=== PATIENT | female | born 1950 | race Caucasian/White ===

== ENCOUNTER 2016-10-30 11:05 | Day surgery (SDC) | payer OTHER ==
[~2016-10-30] VITALS: Ht 154.9 cm; Wt 94.4 kg
--- NOTE | 2016-10-30 07:13 | PCM.HPANE ---
Patient Data Surgeon Admitting Provider: Attending Provider:Bertha Benz MD Primary Care Physician:Daja Villegas Other Provider:Manasa Abebe Anesthesia Reason for Visit Fam Hx Of Colon Cancer Ht/WT & BMI Body Mass Index Allergies Coded Allergies: Penicillins (Verified Allergy, Severe, 10/29/16) acetaminophen (Verified Allergy, Severe, Nausea,Vomiting, 10/29/16) aspirin (Verified Allergy, Severe, 10/29/16) PT STATES NO ALLERGY erythromycin base (Verified Allergy, Severe, 10/29/16) oxycodone (Verified Allergy, Severe, Nausea,Vomiting, 10/29/16) Past Anesthesia History Anesthesia History: Denies:: Anesthesia Reactions Diabetes History Hx Diabetes?: No MRSA MRSA: No Medications Reported Medications Aspirin 81 Mg Jzzkfs58 Mg PO DAILY Ref 0 10/30/16 Beclomethasone Dipropionate (Qvar)8.7 Gm Aer.w.adap2 Puff INHALATION BID #8.7 GM 10/30/16 Losartan Potassium 25 Mg Vcpcgu27 Mg PO BID 10/30/16 Hydrochlorothiazide 25 Mg Okbyuw27 Mg PO DAILY 30 Days Ref 0 10/29/16 Albuterol Sulfate (Proair Respiclick)90 Mcg Aer.pow.ba90 Mcg IH Q4 10/29/16 Acetaminophen/Codeine 300-30mg 1 Each Tablet1 Tablet PO QID PRN Pain Ref 0 10/29/16 Ketotifen Fumarate (Alaway)10 Ml Drops1 Drop BOTH_EYES daily/prn 05/24/15 Discontinued Reported Medications Acetaminophen/Diphenhydramine (Tylenol Pm Ex-Strength Caplet)500 Mg-25 Mg Tablet1 Each PO HS 10/29/16 Methocarbamol 750 Mg Huawlu738 Mg PO QID PRN For Spasm Ref 0 10/29/16 Cyclobenzaprine 10 Mg Rxpztq71 Mg PO TID PRN Spasm 10/29/16 Dabigatran Etexilate Mesylate (Pradaxa)150 Mg Fvhweqv563 Mg PO BID 30 Days 05/25/15 Temazepam 15 Mg Iznukpy99-82 Mg PO HS PRN For Insomnia 30 Days Ref 0 01/25/15 Metoprolol Tartrate 25 Mg Tkqhkk63 Mg PO BID 30 Days Ref 0 01/25/15 Losartan Potassium 25 Mg Ytxtyj90 Mg PO BID 01/25/15 Amiodarone 200 Mg Twldhw628 Mg PO DAILY Ref 0 01/25/15 Albuterol Sulfate (Proventil HFA Inhaler)6.7 Gm Hfa.aer.ad1 Puff INH Q4 PRN For Wheezing #1 INHALER Ref 0 01/25/[address] 40 Mg Bploft83 Mg PO DAILYAC #30 TABLET Ref 0 Prov:Edmundo Nate Bernardo CHAUNCEY 05/26/15 History History of ENT Problems?: No HEENT History: Positive for:: Sinus Problem (2nd to allergies) Denies:: Abnormal Airway Cataracts Difficult Intubation Dysphagia Glaucoma Hearing Problem TMJ Denture Type: None Teeth Condition: Within Normal Limits Hx of Heart Problems?: Yes Cardiovascular History: Positive for:: Chest Pain (TIGHTNESS WITH A-FIB) Hypertension Irregular Heartbeat (paroxysmal atrial fibrillation) Denies:: Cardiac Surgery Congestive Heart Failure Edema Heart Murmur Pacemaker Thrombophlebitis Hx of Respiratory Problem?: Yes Respiratory History: Positive for:: Asthma Dyspnea (WITH EPISODES) Hx Neurologic Problems?: No Hx of GI Problems?: Yes Hx of Problems?: No Female Hx: Denies:: Currently Hx Musculoskeletal Problems?: No Hx of Psycho/Social Problems?: No Hx Surgeries?: Yes (hysterectomy,tubal ligation,lypoma removal) Hx Any Other Health Problems?: Yes Other History: Positive for:: Hospitalization Denies:: Cancer Thyroid Disease History Blood Transfusions: Denies:: Blood Transfuse Reaction Blood Transfusions Hx Diabetes: No Hx Alcohol Use: NoHx Substance Use: No Smoking Status: Former Smoker Have You Smoked inLast 12 mo: No Stop/Bang Risk Assessment Category Category 1A: Patient has history of documented sleep apnea, and HAS NOT received any narcotic, sedative or anesthesia administration during this stay. Category 1B: Patient has history of documented sleep apnea, and HAS received any narcotic , sedative or anesthesia administration during this stay Category 2: Patient has SUSPECTED Obstructive Sleep Apnea, and HAS received any narcotic , sedative or anesthesia administration during this stay. Category 3: Patient has SUSPECTED Obstructive Sleep Apnea and HAS NOT received narcotic, sedative or anesthesia administration during this stay. Category 4: Outpatient in Procedural Areas with known sleep apnea or who screen positive for High Risk via the STOP/BANG questionnaire. Exam Exam General Appearance: Alert, Oriented X3, Cooperative, No Acute Distress HEENT/AIRWAY: MP 2 Lungs: Clear to Auscultation, Normal Air Movement Heart: Exam Unremarkable, Regular Rate/Rhythm, No Murmurs/Rubs/Gallops Plan Impression Patient chart reviewed, patient interviewed and anesthestic plan with risks, benefits, and alternatives discussed, and informed consent obtained. NPO per Anesth. Guidelines: Yes ASA Physical Status: ASA2 Mod Systemic Disease Anesthetic Plan: MAC Bene/Risks/Altern/Consents: Yes HP Complete Prior to Induction: Yes (another anesthesiologist performed the anesthetic) Janak Leyva MD Oct 30, 2016 07:13
[~2016-10-30 11:05] MED LIST: ACET-2605 PO; ACET1TAB42 PO; ALBU90AE IH; CYCL10TA9 PO; HYDR25TA4 PO; KETO10DR4 BOTH_EYES; Lactated Ringer's 1,000 ML IV ONE; Lactated Ringer's 1,000 ML IV SCH; METH750T3 PO; MetoCLOpramide 5 mg/mL 2 mL Inj IVPUSH PRN; Ondansetron 2 mg/mL 2 mL Inj IVPUSH PRN
[2016-10-30] MEDS ORDERED: Propofol 10,000 mCg/mL 20 mL Inj ONE (11:06)
[2016-10-30 11:37] VITALS: BP 146/74; PULSE 84; RESP 18; O2SAT 95
[2016-10-30] MEDS ORDERED: ASPI-973 PO (11:42)
[2016-10-30] MEDS ORDERED: LOSA25TA21 PO (11:42)
[2016-10-30] MEDS ORDERED: BECL8.7A6 INHALATION (11:42)
[2016-10-30] MEDS ORDERED: Lactated Ringer's 1,000 ML IV SCH (13:46)
--- NOTE | 2016-10-30 13:49 | PCM.HPANE ---
Patient Data Date of Service: Oct 30, 2016 Surgeon Admitting Provider: Attending Provider:Vishal Felder MD Primary Care Physician:Daja Villegas Other Provider:Manasa Abebe Anesthesia Reason for Visit Fam Hx Of Colon Cancer Ht/WT & BMI Height (Feet): 5 Height (Inches): 1 Weight (Kilograms): 94.38 Body Mass Index 39.00 Allergies Coded Allergies: Penicillins (Verified Allergy, Severe, 10/29/16) acetaminophen (Verified Allergy, Severe, Nausea,Vomiting, 10/29/16) aspirin (Verified Allergy, Severe, 10/29/16) PT STATES NO ALLERGY erythromycin base (Verified Allergy, Severe, 10/29/16) oxycodone (Verified Allergy, Severe, Nausea,Vomiting, 10/29/16) Past Anesthesia History Anesthesia History: Denies:: Abnormal Airway, Anesthesia Reactions, Difficult Intubation, Fam Anesthesia Reaction, Fam Malignant Hypertherm, Malignant Hyperthermia Diabetes History Hx Diabetes?: No MRSA MRSA: No Medications Blood Thinner: Aspirin Last Dose Blood Thinner: Oct 29, 2016 Hypertension Medication: Yes Home Meds Incl Beta Kwesi: No Reported Medications Aspirin 81 Mg Tgqqap05 Mg PO DAILY Ref 0 10/30/16 Beclomethasone Dipropionate (Qvar)8.7 Gm Aer.w.adap2 Puff INHALATION BID #8.7 GM 10/30/16 Losartan Potassium 25 Mg Njrljd16 Mg PO BID 10/30/16 Hydrochlorothiazide 25 Mg Ezqquu56 Mg PO DAILY 30 Days Ref 0 10/29/16 Albuterol Sulfate (Proair Respiclick)90 Mcg Aer.pow.ba90 Mcg IH Q4 10/29/16 Acetaminophen/Codeine 300-30mg 1 Each Tablet1 Tablet PO QID PRN Pain Ref 0 10/29/16 Ketotifen Fumarate (Alaway)10 Ml Drops1 Drop BOTH_EYES daily/prn 05/24/15 Discontinued Reported Medications Acetaminophen/Diphenhydramine (Tylenol Pm Ex-Strength Caplet)500 Mg-25 Mg Tablet1 Each PO HS 10/29/16 Methocarbamol 750 Mg Mmcjlh477 Mg PO QID PRN For Spasm Ref 0 10/29/16 Cyclobenzaprine 10 Mg Ithvnv45 Mg PO TID PRN Spasm 10/29/16 Dabigatran Etexilate Mesylate (Pradaxa)150 Mg Ezxzvqm906 Mg PO BID 30 Days 05/25/15 Temazepam 15 Mg Ihqqjoe73-03 Mg PO HS PRN For Insomnia 30 Days Ref 0 01/25/15 Metoprolol Tartrate 25 Mg Tdybqm22 Mg PO BID 30 Days Ref 0 01/25/15 Losartan Potassium 25 Mg Hlednd99 Mg PO BID 01/25/15 Amiodarone 200 Mg Oluifr245 Mg PO DAILY Ref 0 01/25/15 Albuterol Sulfate (Proventil HFA Inhaler)6.7 Gm Hfa.aer.ad1 Puff INH Q4 PRN For Wheezing #1 INHALER Ref 0 01/25/[address] 40 Mg Tjumcc62 Mg PO DAILYAC #30 TABLET Ref 0 Prov:Nate Wyatt PA-C 05/26/15 History History of ENT Problems?: No HEENT History: Positive for:: Dysphagia (INTERMITTENT) Hearing Problem (MILD [place] PASS) Sinus Problem (2nd to allergies) Denies:: Abnormal Airway Difficult Intubation Denture Type: None Teeth Condition: Tooth Decay Hx of Heart Problems?: Yes Cardiovascular History: Positive for:: Atrial Fibrillation Irregular Heartbeat (paroxysmal atrial fibrillation) Denies:: AICD Cardiac Surgery Chest Pain Congestive Heart Failure Edema Heart Murmur Hypertension Pacemaker Thrombophlebitis Valvular Heart Disease Hx of Respiratory Problem?: Yes Respiratory History: Positive for:: Asthma (DAILY INHALER USE) Dyspnea (WITH EPISODES) Pneumonia Use of C-PAP Machine Denies:: COPD Cough Hemoptysis Tuberculosis Hx Neurologic Problems?: No Neurological History: Denies:: CVA Hx of GI Problems?: Yes Hx of Problems?: No Female Hx: Denies:: Currently (HYSTO) Hx Musculoskeletal Problems?: No Musculoskeletal History: Denies:: Fibromyalgia Joint Replacement Hx of Psycho/Social Problems?: No Psycho Social History: Positive for:: Anxiety Denies:: Hx Depression Hx Surgeries?: Yes (CARDIAC ABLATION, LYPOMA, HYSTO, TUBAL, TONSIL, APPY) Hx Any Other Health Problems?: Yes Other History: Positive for:: Hospitalization Denies:: Cancer Thyroid Disease History Blood Transfusions: Denies:: Blood Transfuse Reaction Blood Transfusions Hx Diabetes: No Hx Alcohol Use: NoHx Substance Use: No Smoking Status: Former Smoker Have You Smoked inLast 12 mo: No Stop/Bang Treated for Sleep Apnea?: Yes Do You Have a CPAP Machine?: Yes (COMPLIANT WITH NIGHTLY USE) SHAHRAM Risk Assessment: High Risk, =/>3 Yes Risk Assessment Category Category 1A: Patient has history of documented sleep apnea, and HAS NOT received any narcotic, sedative or anesthesia administration during this stay. Category 1B: Patient has history of documented sleep apnea, and HAS received any narcotic , sedative or anesthesia administration during this stay Category 2: Patient has SUSPECTED Obstructive Sleep Apnea, and HAS received any narcotic , sedative or anesthesia administration during this stay. Category 3: Patient has SUSPECTED Obstructive Sleep Apnea and HAS NOT received narcotic, sedative or anesthesia administration during this stay. Category 4: Outpatient in Procedural Areas with known sleep apnea or who screen positive for High Risk via the STOP/BANG questionnaire. Exam Exam Vital Signs Vital Signs Date Time Temp Pulse Resp B/P Pulse Ox O2 Delivery O2 Flow Rate FiO2 10/30/16 11:37 36.4 84 18 146/74 95 Room Air General Appearance: Alert HEENT/AIRWAY: MP 2, Neck Movement, Mouth Opening (Full) Lungs: Clear to Auscultation, Normal Air Movement Heart: Regular Rate/Rhythm, Normal S1, Normal S2 Meds/Labs/Diagnostics Admission Meds Current Medications Lactated Ringer's (Lr) 1,000 ml @ 120 mls/hr Q8H20M IV Last administered on t 13:06; Start 10/30/16 at 07:13; Stop 10/30/16 at 15:12 Plan Impression Patient chart reviewed, patient interviewed and anesthestic plan with risks, benefits, and alternatives discussed, and informed consent obtained. NPO per Anesth. Guidelines: Yes ASA Physical Status: ASA2 Mod Systemic Disease Anesthetic Plan: MAC Bene/Risks/Altern/Consents: Yes HP Complete Prior to Induction: Yes Oneal Duff MD Oct 30, 2016 13:43
[2016-10-30] MEDS ORDERED: Ondansetron 2 mg/mL 2 mL Inj IVPUSH PRN (13:50)
[2016-10-30 14:47] VITALS: BP 104/65; PULSE 72; RESP 14; O2SAT 100
[2016-10-30 14:57] VITALS: BP 123/76; PULSE 68; RESP 14; O2SAT 98
--- NOTE | 2016-10-30 15:14 | PCM.ANEP1 ---
Post Anesthesia PACU Phase 1 Assessment Date of Service: Oct 30, 2016 Vital Signs Vital Signs Date Time Temp Pulse Resp B/P Pulse Ox O2 Delivery O2 Flow Rate FiO2 10/30/16 14:57 68 14 123/76 98 Room Air 10/30/16 14:47 72 14 104/65 100 Room Air 10/30/16 11:37 36.4 84 18 146/74 95 Room Air Anesthetic Administered: MAC Level of Alertness: Awake, talking LOYA's with Equal Strength: Yes Pain: No Nausea or Vomiting: No CV Function & Hydration Stable: No Airway Device: Oxygen Delivery: Room Air Lungs: Normal Air Movement PACU Phase 2 Assessment Complications: No Follow up Care: No Patient Instructions Provided: N/A Oneal Duff MD Oct 30, 2016 15:14
--- NOTE | 2016-10-30 23:20 | ENDO ---
[address] [address] ENDOSCOPY PROCEDURE PATIENT: REY MONAE : 1950 MR#: [id number] ADMIT: 10/30/2016 JOB ID: [id number] DATE OF SERVICE: 10/30/2016 PRIMARY CARE PROVIDER: BASIL Elliott PROCEDURE: Colonoscopy with hot and cold snare polypectomies. INDICATIONS: A 66-year-old female with a family history of colon cancer. EQUIPMENT: [employer] H 180 AL. SEDATION: Monitored anesthesia as provided by Dr. Oneal Duff. COMPLICATIONS: None identified. BOWEL PREPARATION: Fair, adequate exam. PROCEDURE INFORMATION: After the risks and benefits were explained, written and verbal informed consent was obtained. The patient was brought into the endoscopy suite and placed into the left lateral decubitus position. Sedation was achieved using the above-stated medications with the addition of oxygen via nasal cannula. Digital rectal examination was accomplished. No significant pathology appreciated. The scope introduced into the rectum and advanced to the cecum as identified by the appendiceal orifice and ileocecal valve. The scope was slowly withdrawn to carefully examine the mucosa for any defects or lesions. Multiple direct views were made through the dentate line for exclusion of pathology. The colon was decompressed. The scope removed the patient who tolerated the procedure well. FINDINGS: In the ascending colon, there was a large perhaps 8-10 mm polyp removed with hot snare. Around the hepatic flexure, there was a much smaller polyp, perhaps 5-6 mm, removed with cold snare. In the rectum, there was a diminutive, 3 mm polyp removed with cold snare. No other significant pathology was appreciated throughout. ENDOSCOPIC DIAGNOSES: Multiple colon polyps. RECOMMENDATIONS: 1. Await histopathology. 2. Repeat colonoscopy in three years.
--- NOTE | 2016-11-01 09:58 | PATH ---
SURGICAL PATHOLOGY Attending Physician:Kamla Dudley CASE STATUS: Signed Out PATIENT NAME: REY MONAE PID: [id number] : 1950 DATE COLLECTED:10/30/2016 00:00 SPECIMEN: Colon, Biopsy CLINICAL HISTORY: 1. 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 ICD10 D12.6 GROSS DESCRIPTION: The specimen is received in one formalin filled container labeled with the patient's name, sublabeled "colon polyps" and consists of multiple portions of tissue which aggregate to 0.6 x 0.6 x 0.5 CM. The specimen is entirely submitted in one cassette. 10/31/2016 [facility] MICRO DESCRIPTION: See diagnosis. ICD-9 CODES: CPT CODES: 1: 64973 Electronically Signed Out Vishal Wallis MD [facility]ology [facility] [address], [place] [address] Technical component performed at [facility], [facility] [address], [place], [address]
== END 2016-10-30 23:59 | disposition home or self-care (01) ==
LOC: END 11:05
PROVIDERS: ATTEND Internal Medicine Gastroenterology
DX: Z12.11 Encounter for screening for malignant neoplasm of colon (principal); Z80.0 Family history of malignant neoplasm of digestive organs; D12.2 Benign neoplasm of ascending colon; D12.3 Benign neoplasm of transverse colon; D12.8 Benign neoplasm of rectum; I10 Essential (primary) hypertension; I48.91 Unspecified atrial fibrillation; G47.33 Obstructive sleep apnea (adult) (pediatric); J45.909 Unspecified asthma, uncomplicated; F41.9 Anxiety disorder, unspecified; E66.01 Morbid (severe) obesity due to excess calories; Z90.710 Acquired absence of both cervix and uterus; Z87.891 Personal history of nicotine dependence; Z68.39 Body mass index [BMI] 39.0-39.9, adult; Z79.82 Long term (current) use of aspirin
CPT/HCPCS: 45385; J7120